=== PATIENT | male | born 1945 | race Caucasian/White ===

== ENCOUNTER 2019-10-21 02:49 | Emergency (ER) | payer MEDICARE, BC ==
--- NOTE | 2019-10-21 03:50 | EDM.PDOC ---
ED HPI GENERAL MEDICAL PROBLEM - General Chief Complaint: General Stated Complaint: SORE THROAT HOT AND FEELS LIKE GONNA PASS OUT Time Seen by Provider: 10/21/19 03:23 Source of Information: Reports: Patient, Family () History Limitations: Reports: No Limitations - History of Present Illness INITIAL COMMENTS - FREE TEXT/NARRATIVE: Mr. Altman is a pleasant 73-year-old gentleman who now presents to the ED stating that he has had a sore throat since 10/19/2019. He states that his throat pain has gotten progressively worse, since. He has had diaphoresis since 10/20/2019, 1 to 2 days of mild shortness of breath, and lightheadedness that developed last night. He states that his throat feels swollen, making it difficult to swallow. He has not had a fever. No recent nausea or vomiting. The patient states that he has had similar symptoms many times in the past, and he believes that he had been diagnosed with a cold, although he acknowledges that he has been diagnosed with strep throat in the past. No medical evaluation for his current symptoms. He did not take any [id number] or home remedies prior to coming to the ED. Here in the ED, the patient's initial BP is found to be elevated at 163/73, otherwise, he is hemodynamically stable, afebrile, saturating 93% on room air. Other than the above symptoms of a sore throat, diaphoresis, dyspnea, and lightheadedness, the patient denies recent fever, chills, ear pain, nasal or sinus congestion, cough, chest pain, palpitations, nausea, vomiting, constipation, diarrhea, abdominal pain, urinary symptoms, recent weight gain or weight loss, recent bloody bowel movements or black bowel movements, recent joint aches, headaches, or rashes. The patient and his are visiting this area from [place], [place]. Throat Pain Score (Numeric/FACES): 10 - Related Data Allergies Allergy/AdvReac Type Severity Reaction Status Date / Time No Known Allergies Allergy Verified 10/21/19 03:02 Home Meds: Home Meds Aspirin 81 mg PO DAILY 10/21/19 [History] Metoprolol Succinate 100 mg PO DAILY 10/21/19 [History] amLODIPine [Norvasc] 5 mg PO DAILY 10/21/19 [History] lisinopriL [Lisinopril] 20 mg PO DAILY 10/21/19 [History] Past Medical History Cardiovascular History: Reports: CAD, Hypertension Musculoskeletal History: Reports: Arthritis Endocrine/Metabolic History: Reports: Obesity/BMI 30+ - Past Surgical History HEENT Surgical History: Reports: Cataract Surgery, Oral Surgery (dental extractions) Cardiovascular Surgical History: Reports: Coronary Artery Stent (x 7), Other (See Below) (coronary angiogram x 2) Social & Family History - Family History Family Medical History: Noncontributory - Tobacco Use Smoking Status *Q: Former Smoker Years of Tobacco use: 41 Packs/Tins Daily: 1 Month/Year Tobacco Last Used: Quit 2004 - Caffeine Use Caffeine Use: Reports: Coffee, Soda - Alcohol Use Alcohol Use History: No - Recreational Drug Use Recreational Drug Use: No - Living Situation & Occupation Living situation: Reports: , with Spouse Occupation: Retired ED ROS GENERAL - Review of Systems Review Of Systems: Comprehensive ROS is negative, except as noted in HPI. ED EXAM, GENERAL - Physical Exam Exam: See Below Exam Limited By: No Limitations General Appearance: Alert, WD/WN, No Apparent Distress Eye Exam: Bilateral Eye: EOMI, Normal Inspection Ears: Normal External Exam, Hearing Grossly Normal, Other (cerumen occluding TMs bilaterally) Nose: Normal Inspection, Normal Mucosa, No Blood Throat/Mouth: Normal Lips, Normal Teeth, Normal Gums, Normal Voice, No Airway Compromise, Other (Several white, non-raised spots on the patient's posterior soft palate. No signs of inflammation, such as erythema or swelling. The white spots are NOT aphthous ulcers.) Head: Atraumatic, Normocephalic Neck: Normal Inspection, Supple, Non-Tender, Full Range of Motion. No: Lymphadenopathy (L), Lymphadenopathy (R) Respiratory/Chest: No Respiratory Distress, Lungs Clear, Normal Breath Sounds, No Accessory Muscle Use Cardiovascular: Normal Peripheral Pulses, Regular Rate, Rhythm, No Gallop, No JVD, No Murmur, No Rub Peripheral Pulses: 3+: Radial (L), Radial (R) GI/Abdominal: Normal Bowel Sounds, Soft, Non-Tender, No Organomegaly, No Distention, No Abnormal Bruit, No Mass (Male) Exam: Deferred Rectal (Males) Exam: Deferred Back Exam: Normal Inspection, Full Range of Motion, NT Extremities: Normal Inspection, Normal Range of Motion, Normal Capillary Refill, Other (Trace bilateral pretibial edema) Neurological: Alert, Oriented, Normal Cognition, No Motor/Sensory Deficits Psychiatric: Normal Affect Skin Exam: Warm, Dry, Intact, Normal Color, No Rash EKG INTERPRETATION EKG Date: 10/21/19 Time: 03:50 Rhythm: NSR Rate (Beats/Min): 66 [place]: Normal P-Wave: Present QRS: Normal ST-T: Normal QT: Normal Comparison: NA - No Prior EKG Course - Vital Signs Last Recorded V/S: Last Vital Signs Temp 37.2 C 10/21/19 02:58 Pulse 76 10/21/19 02:58 Resp 17 10/21/19 02:58 BP 163/73 H 10/21/19 02:58 Pulse Ox 93 L 10/21/19 02:58 Orthostatic Blood Pressure [ 148/74 Standing] Orthostatic Blood Pressure [ 145/74 Sitting] Orthostatic Blood Pressure [ 146/69 Supine] - Orders/Labs/Meds Labs: Laboratory Tests 10/21/19 10/21/19 Range/Units 04:12 04:12 WBC 9.56 H (4.23-9.07) K/mm3 RBC 5.24 (4.63-6.08) M/mm3 Hgb 15.3 (13.7-17.5) gm/dl Hct 47.6 (40.1-51.0) % MCV 90.8 (79.0-92.2) fl MCH 29.2 (25.7-32.2) pg MCHC 32.1 L (32.2-35.5) g/dl RDW Std Deviation 49.1 H (35.1-43.9) fL Plt Count 213 (163-337) K/mm3 MPV 10.5 (9.4-12.3) fl Neutrophils % (Manual) 50 (40-60) % Band Neutrophils % 0 (0-10) % Lymphocytes % (Manual) 34 (20-40) % Atypical Lymphs % 0 % Monocytes % (Manual) 12 H (2-10) % Eosinophils % (Manual) 2 (0.8-7.0) % Basophils % (Manual) 2 H (0.2-1.2) Platelet Estimate Adequate Plt Morphology Comment Normal RBC Morph Comment Normal Sodium 143 (136-145) mEq/L Potassium 3.7 (3.5-5.1) mEq/L Chloride 107 (98-107) mEq/L Carbon Dioxide 25 (21-32) mEq/L Anion Gap 14.7 (5-15) BUN 17 (7-18) mg/dL Creatinine 1.3 (0.7-1.3) mg/dL Est Cr Clr Drug Dosing 50.42 mL/min Estimated GFR (MDRD) 54 (>60) mL/min BUN/Creatinine Ratio 13.1 L (14-18) Glucose 128 H (83-115) mg/dL Calcium 8.9 (8.5-10.1) mg/dL Total Bilirubin 0.6 (0.2-1.0) mg/dL AST 27 (15-37) U/L ALT 48 (16-63) U/L Alkaline Phosphatase 71 (46-116) U/L Troponin I < 0.017 (0.00-0.056) ng/mL Total Protein 7.1 (6.4-8.2) g/dl Albumin 3.6 (3.4-5.0) g/dl Globulin 3.5 gm/dL Albumin/Globulin Ratio 1.0 (1-2) Meds: Medications Discontinued Medications Generic Name Dose Route Start Last Admin Trade Name Freq PRN Reason Stop Dose Admin Penicillin G Benzathine 1.2 millunits 10/21/19 05:07 10/21/19 05:12 Bicillin L-A IM 10/21/19 05:08 1.2 millunits ONETIME STA Administration - Re-Assessments/Exams Free Text/Narrative Re-Assessment/Exam: 10/21/19 03:47 As above, the patient has had throat pain since 10/19/2019, which has been progressively getting worse, diaphoresis since yesterday, 10/20/2019, and lightheadedness that developed during the night. He also reports 2 days of mild shortness of breath. He has not had any chest pain palpitations. On physical exam, the patient has several white spots on his posterior soft palate. No signs of inflammation were seen. I cannot say whether or not the white spots may be related to his sore throat. I swabbed his throat for a rapid strep test, and have ordered a work-up that includes orthostatics, blood work, a chest x-ray, and an ECG. The patient refused an offer to test for the SARS-CoV-2 virus. 10/21/19 04:56 The patient is not orthostatic. Two-view chest radiograph appears to be grossly normal. The cardiac silhouette is within normal limits. No pulmonary vascular congestion. No pleural effusions. No focal infiltrate. No pneumothorax. Formal read per the Radiologist pending. The patient's rapid strep test has returned positive for group A strep. The patient's CBC is remarkable for WBC count slightly elevated at 9.56, but with 0% bandemia. The remainder of his CBC is unremarkable. His CMP is remarkable for a blood glucose mildly elevated at 128, with the remainder of his CMP being unremarkable. His troponin is undetectably low. 10/21/19 05:05 Test results discussed with the patient and his . As above, the patient has strep throat. He stated that he has had strep throat in the past, and that they usually give him a shot of penicillin, and he feels better. At this patient's age, I am worried that he may be a strep carrier. I would like him to follow-up with an ENT to evaluate the white spots on the back of his soft palate, and at that time, they could also check to see if he is a strep carrier. The patient lives in [facility], therefore he will need to be referred by his PCP to an ENT in [place]. Departure - Departure Time of Disposition: 05:06 Disposition: Home, Self-Care 01 Condition: Good Clinical Impression: Streptococcal pharyngitis - Discharge Information *PRESCRIPTION DRUG MONITORING PROGRAM REVIEWED*: Not Applicable *COPY OF PRESCRIPTION DRUG MONITORING REPORT IN PATIENT JEANNETTE: Not Applicable Instructions: Strep Throat, Adult, [id number] Referrals: PCP,Not In Area [Primary Care Provider] - Forms: ED Department Discharge Additional Instructions: You were seen in the emergency room for a sore throat, lightheadedness, sweatiness, and mild shortness of breath. Work-up in the ER included positional blood pressure checks, blood work, a chest x-ray, a rapid strep test, and an ECG. Your rapid strep test returned positive for strep throat. You were given an injection of long-acting penicillin in the ER. No further treatment is needed. The remainder of your work-up was unremarkable, however, on examination, there were several white spots noticed on the back of your soft palate. We recommend that you follow-up with an ENT once you return home, not only to evaluate the white spots, but also to check to make sure that you are not a strep carrier. If any other problems, please do not hesitate to return to the ER. Sepsis Event Note (ED) - Evaluation Sepsis Screening Result: No Definite Risk
[2019-10-21] MEDS ORDERED: Penicillin G Benzathine 1,200,000 Units/2 ML Syringe IM STA (05:07)
--- NOTE | 2019-10-21 08:48 | CR ---
Chest: 2 views of the chest were obtained. Comparison: No prior chest imaging is available. Heart size and mediastinum are normal. Lungs are clear with no acute parenchymal change. Slight degenerative change is scattered within the spine. Impression: 1. Nothing acute is seen on 2 view chest x-ray. Diagnostic code #1 This report was dictated in MDT
== END 2019-10-21 05:21 | disposition home or self-care (01) ==
LOC: JD.ED 02:49
DX: J02.0 Streptococcal pharyngitis (principal); I25.10 Atherosclerotic heart disease of native coronary artery without angina pectoris; I10 Essential (primary) hypertension; M19.90 Unspecified osteoarthritis, unspecified site; Z79.82 Long term (current) use of aspirin; Z79.899 Other long term (current) drug therapy; E66.9 Obesity, unspecified; Z87.891 Personal history of nicotine dependence; Z68.35 Body mass index [BMI] 35.0-35.9, adult
CPT/HCPCS: 36415; 71046; 80053; 84484; 85007; 85027; 87430; 93005; 96372; 99284; J0561